=== PATIENT | male | born 1940 | race Caucasian/White ===

== ENCOUNTER 2019-06-29 04:11 | Observation (INO) | payer MEDICARE, OTHER ==
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
--- NOTE | 2019-06-29 05:40 | CRLCR ---
Indication: dyspnea Technique: Chest 1 view Comparison: None Findings/Impression: Cardiovascular and mediastinum: Heart size and vasculature are normal in caliber and appearance. Mediastinum is within normal limits. Lungs and pleural space: Increase interstitial markings throughout the lungs may be chronic. No sign of focal infiltrate or mass. No sign of pleural effusion. No pneumothorax. Bones and soft tissues: No significant findings. Dictated by Maureen Galeana MD @ Jun 29 2019 5:37AM Signed by Dr. Maureen Galeana @ Jun 29 2019 5:38AM
--- NOTE | 2019-06-29 08:41 | PCM.HP.2 ---
H&P History of Present Illness - General Date of Service: 06/29/19 Admit Problem/Dx: Admission Diagnosis/Problem Admission Diagnosis/Problem Atrial fibrillation Source of Information: Patient, Provider History Limitations: Reports: No Limitations - History of Present Illness Initial Comments - Free Text/Narative: CC: I get winded HPI: Naeem presents to the emergency room today with fatigue and shortness of breath, especially dyspnea with exertion. He reports onset of initial symptoms about 2 weeks ago. He had some nausea and significant generalized abdominal cramping after eating cookies at a friend's house. Initially seemed to get over this and was feeling better but has gone steadily downhill since that time. He is now short of breath with any activity. He normally walks extensive distances each day without any limitation. He has been short of breath even at rest at times. He thinks maybe he's had some subjective fevers but has not measured any temperatures. He is not coughing. He has not had any episodes of chest pain. He has not had nausea since the original symptoms 2 weeks ago. Appetite has been relatively stable. No change in bowel or bladder habits. No sick contacts. He doesn't think anybody else cut sick after eating cookies a few weeks ago. Workup in the emergency room revealed evidence for atrial fibrillation with a mildly tachycardic response. Chest x-ray showed either some old chronic changes or possibly mild congestive failure. He will be admitted for observation and expedited workup. - Related Data Allergies/Adverse Reactions: Allergies Allergy/AdvReac Type Severity Reaction Status Date / Time No Known Allergies Allergy Verified 06/29/19 04:35 Home Medications: Home Meds NK [No Known Home Meds] 06/29/19 [History] Past Medical History HEENT History: Reports: Cataract, Hard of Hearing Oncologic (Cancer) History: Reports: Basal Cell Carcinoma, Squamous Cell Carcinoma Dermatologic History: Reports: Other (See Below) Other Dermatologic History: actinic keratoses, basal cell carcinoma of skin, squamous cell carcinoma of face - Past Surgical History GI Surgical History: Reports: Hernia, Abdominal Social & Family History - Family History Cardiac: Denies: Afib, CAD - Tobacco Use Smoking Status *Q: Current Every Day Smoker Years of Tobacco use: 55 Packs/Tins Daily: 0.5 - Caffeine Use Caffeine Use: Reports: Coffee - Alcohol Use Days Per Week of Alcohol Use: 7 Number of Drinks Per Day: 1 Total Drinks Per Week: 7 - Recreational Drug Use Recreational Drug Use: No H&P Review of Systems - Review of Systems: Review Of Systems: See Below Free Text/Narrative: A complete 12 point review of systems was obtained. Pertinent positives and negatives are noted in the history of present illness. All other systems were reviewed and were negative except as noted. Exam - Exam Exam: See Below - Vital Signs Vital Signs: Last Vital Signs Temp 36.5 C 06/29/19 04:34 Pulse 111 H 06/29/19 04:34 Resp 16 06/29/19 04:34 BP 140/93 H 06/29/19 04:34 Pulse Ox 97 06/29/19 04:34 Weight: 78.5 kg - Exam Quality Assessment: No: Supplemental Oxygen General: Alert, Oriented, Cooperative, Mild Distress HEENT: Conjunctiva Clear. No: Mucosa Moist & [place] (dry), Scleral Icterus Neck: Supple, Trachea Midline. No: Lymphadenopathy, JVD Lungs: Normal Respiratory Effort, Crackles (rare at bases) Cardiovascular: Regular Rate, Irregular Rhythm. No: Systolic Murmur GI/Abdominal Exam: Normal Bowel Sounds, Soft, Non-Tender, No Distention Back Exam: Normal Inspection, Full Range of Motion Extremities: No Pedal Edema. No: Increased Warmth Skin: Warm, Dry Neuro Extensive - Mental Status: Alert, Oriented x3, Nl Response to Commands Neuro Extensive - Motor, Sensory, Reflexes: No: Dysarthria, Abnormal Motor, Tremor Psychiatric: Alert, Normal Affect - Patient Data Lab Results Last 24 hrs: Laboratory Results - last 24 hr 06/29/19 06/29/19 06/29/19 Range/Units 05:10 05:10 05:50 WBC 5.1 (4.5-11.0) K/uL RBC 4.05 L (4.30-5.90) M/uL Hgb 12.6 (12.0-15.0) g/dL Hct 37.3 L (40.0-54.0) % MCV 92 (80-98) fL MCH 31 (27-31) pg MCHC 34 (32-36) % Plt Count 152 (150-400) K/uL Neut % (Auto) 77 H (36-66) % Lymph % (Auto) 15 L (24-44) % [place] % (Auto) 8 H (2-6) % Eos % (Auto) 0 L (2-4) % Baso % (Auto) 1 (0-1) % Sodium 123 L (140-148) mmol/L Potassium 3.7 (3.6-5.2) mmol/L Chloride 90 L (100-108) mmol/L Carbon Dioxide 21 (21-32) mmol/L Anion Gap 15.7 H (5.0-14.0) mmol/L BUN 10 (7-18) mg/dL Creatinine 0.7 L (0.8-1.3) mg/dL Est Cr Clr Drug Dosing 92.38 mL/min Estimated GFR (MDRD) > 60 (>60) Glucose 113 H (74-106) mg/dL Calcium 7.5 L (8.5-10.1) mg/dL Total Bilirubin 1.2 H (0.2-1.0) mg/dL AST 35 (15-37) U/L ALT 34 (12-78) U/L Alkaline Phosphatase 51 (46-116) U/L Troponin I 0.036 (0.000-0.056) ng/mL Total Protein 5.7 L (6.4-8.2) g/dL Albumin 2.5 L (3.4-5.0) g/dL Globulin 3.2 (2.3-3.5) g/dL Albumin/Globulin Ratio 0.8 L (1.2-2.2) Urine Color Yellow (YELLOW) Urine Appearance Clear (CLEAR) Urine pH 7.0 (5.0-8.0) Ur Specific [place] 1.020 (1.008-1.030) Urine Protein 100 H (NEGATIVE) mg/dL Urine Glucose (UA) Negative (NEGATIVE) mg/dL Urine Ketones Trace H (NEGATIVE) mg/dL Urine Occult Blood Trace-intact H (NEGATIVE) Urine Nitrite Negative (NEGATIVE) Urine Bilirubin Negative (NEGATIVE) Urine Urobilinogen 4.0 H (0.2-1.0) EU/dL Ur Leukocyte Esterase Negative (NEGATIVE) Urine RBC 0-5 (0-5) Urine WBC 0-5 (0-5) Ur Epithelial Cells Rare Amorphous Sediment Not seen Urine Bacteria Few Urine Mucus Not seen Result Diagrams: 06/29/19 05:10 06/29/19 05:10 Imaging Impressions Last 24 hrs: CXR - images personally reviewed - lungs clear with no mass or infiltrate. Probable small effusions EKG INTERPRETATION EKG Date: 06/29/19 Rhythm: A-Fib Rate (Beats/Min): 97 [place]: Normal QRS: Normal ST-T: Normal QT: Normal Comparison: NA - No Prior EKG EKG Interpretation Comments: early R-S transition Image personally reviewed *Q Meaningful Use (ADM) - VTE Risk Assess *Q Each Risk Factor Represents 1 Point: None Total Score 1 Point Risk Factors: 0 Each Risk Factor Represents 2 Points: None Total Score 2 Point Risk Factors: 0 Each Risk Factor Represents 3 Points: Age 75 Years or Greater Total Score 3 Point Risk Factors: 3 Each Risk Factor Represents 5 Points: None Total Score 5 Point Risk Factors: 0 Venous Thromboembolism Risk Factor Score *Q: 3 - Problem List (1) Atrial fibrillation with rapid ventricular response SNOMED Code(s): 500649256835442 ICD Code: I48.91 - UNSPECIFIED ATRIAL FIBRILLATION Status: Acute Current Visit: Yes Problem List Initiated/Reviewed/Updated: Yes Orders Last 24hrs: Active Orders 24 hr Category Date Time Status Patient Status Manage Transfer [TRANSFER] Routine ADT 06/29/19 08:29 Ordered EKG Documentation Completion [RC] ASDIRECTED Care 06/29/19 05:02 Active C-REACTIVE PROTEIN [CHEM] Stat Lab 06/29/19 08:28 Ordered SEDIMENTATION RATE MANUAL [HEME] Stat Lab 06/29/19 08:28 Ordered TSH ULTRASENSITIVE [CHEM] Stat Lab 06/29/19 08:28 Ordered Resuscitation Status Routine Resus Stat 06/29/19 08:30 Ordered EKG 12 Lead [EK] Routine Ther 06/29/19 05:02 Ordered Assessment/Plan Comment:: ASSESSMENT AND PLAN - New-onset atrial fibrillation - most likely this is the cause for his dyspnea and fatigue. Troponin is normal. No strong evidence to support infection at this time. Bedside ultrasound did show a pericardial effusion. Inflammatory markers are elevated. EKG did not show acute ischemic changes. Patient appears to be hypovolemic rather than hypervolemic at this time. Heart rate has improved without intervention. TSH mildly elevated but T4 is normal. No history of heart disease and he is otherwise stable and in excellent physical shape. -CT scan of the chest to further evaluate the pericardial effusion -Consider beta bo -Cardiac monitoring Maintenance issues - - DVT prophylaxis - patient will be ambulatory - GI prophylaxis - not indicated - Nutrition - regular - Hook catheter - not indicated CODE STATUS - full code Admission justification - patient will be referred observation status for expedited workup Disposition - I would anticipate discharge home after the hospital stay Primary care physician - no primary care Israel Mota M.D. - Mortality Measure Prognosis:: Good
[2019-06-29] MEDS ORDERED: Acetaminophen 325 MG Tab PO PRN (09:21)
[2019-06-29] MEDS ORDERED: Magnesium Hydroxide 400 MG/5 ML Susp 30 ML Cup PO PRN (09:21)
[2019-06-29] MEDS ORDERED: Ondansetron 4 MG/2 ML SDV IV PRN (09:21)
[2019-06-29] MEDS ORDERED: Ondansetron 4 MG Tab.DIS PO PRN (09:21)
[2019-06-29] MEDS ORDERED: Sodium Chloride 0.9% 10 ML Syringe FLUSH ONE (12:21)
[2019-06-29] MEDS ORDERED: Sodium Chloride 0.9% 100 ML IV SCH (12:30)
[2019-06-29] MEDS ORDERED: Iopamidol 612 MG/ML 100 ML Bottle IV SCH (12:30)
--- NOTE | 2019-06-29 15:45 | CRLCT ---
INDICATION: Cough; shortness of breath. COMPARISON: Chest radiograph June 29, 2019. TECHNIQUE: CT chest with intravenous contrast; coronal and sagittal reformats. FINDINGS: No CT evidence of pulmonary thromboembolism. No evidence of aortic aneurysm or dissection. Normal size cardiac silhouette without any evidence of pericardial effusion. Bilateral pleural effusion. No abnormal mediastinal or hilar lymphadenopathy. No abnormal intra pulmonary nodular densities are identified .limited CT through the upper abdomen is unremarkable. IMPRESSION: 1. Bilateral pleural effusion. 2. No CT evidence of pulmonary thromboembolism. 3. No evidence of aortic aneurysm or dissection. 4. Benign calcified lymph nodes mediastinum. Please note that all CT scans at this facility use dose modulation, iterative reconstruction, and/or weight-based dosing when appropriate to reduce radiation dose to as low as reasonably achievable. Dictated by Ge Sheikh MD @ Jun 29 2019 3:40PM Signed by Dr. Ge Sheikh @ Jun 29 2019 3:43PM
[2019-06-29] MEDS ORDERED: Furosemide 20 MG/2 ML VIAL IVPUSH ONE (16:45)
[2019-06-30] MEDS ORDERED: Diphtheria,Pertussis(Acell),Tetanus Vaccine 0.5 ML SDV IM ONE (09:00)
[2019-06-30] MEDS ORDERED: Pneumococcal Polyvalent-23 Vaccine 0.5 ML SDV IM ONE (10:00)
--- NOTE | 2019-06-30 15:58 | PCM.DCSUM1 ---
Discharge Summary - Hospital Course Brief History: Mr. Yates is an 78-year-old gentleman who was admitted through the emergency department with weakness and shortness of breath secondary to atrial fibrillation with rapid ventricular response and diastolic congestive heart failure. - Discharge Data Discharge Date: 06/30/19 Discharge Disposition: Home, Self-Care 01 Condition: Fair - Referral to Home Health Primary Care Physician: PCP None - Discharge Diagnosis/Problem(s) (1) Pericardial effusion SNOMED Code(s): 909506465 ICD Code: I31.3 - PERICARDIAL EFFUSION (NONINFLAMMATORY) Status: Acute Current Visit: Yes (2) Pleural effusion, bacterial SNOMED Code(s): 90854716 ICD Code: J90 - PLEURAL EFFUSION, NOT ELSEWHERE CLASSIFIED Status: Acute Current Visit: Yes (3) Diastolic CHF SNOMED Code(s): 083875975, 128513197 ICD Code: I50.30 - UNSPECIFIED DIASTOLIC (CONGESTIVE) HEART FAILURE Status : Acute Current Visit: Yes (4) Atrial fibrillation with rapid ventricular response SNOMED Code(s): 791532928385987 ICD Code: I48.91 - UNSPECIFIED ATRIAL FIBRILLATION Status: Acute Current Visit: Yes - Patient Summary/Data Hospital Course: Mr. Yates presented to the emergency room with fatigue and shortness of breath, especially dyspnea with exertion. He reported onset of initial symptoms about 2 weeks ago. He had some nausea and significant generalized abdominal cramping after eating cookies at a friend's house. Initially seemed to get over this and was feeling better but has gone steadily downhill since that time. He is now short of breath with any activity. He normally walks extensive distances each day without any limitation. He has been short of breath even at rest at times. He thinks maybe he's had some subjective fevers but has not measured any temperatures. He is not coughing. He has not had any episodes of chest pain. He has not had nausea since the original symptoms 2 weeks ago. Appetite has been relatively stable. No change in bowel or bladder habits. No sick contacts. He doesn't think anybody else cut sick after eating cookies a few weeks ago. Workup in the emergency room revealed evidence for atrial fibrillation with a mildly tachycardic response. Chest x-ray showed either some old chronic changes or possibly mild congestive failure. He was admitted for observation and expedited workup. He was given IV fluids in the emergency department and heart rate improved and stayed within desired range through the rest of his hospital stay. CT scan of the chest showed no evidence of pulmonary emboli but did document bilateral pleural effusions. There was no evidenceof reported pericardial effusion from CT scan. The following morning he did have an echocardiogram which showed low normal left ventricular function with estimated ejection fraction of 50-55%. There was some mild to moderate valvular disease and right-sided chamber enlargement. Also noted was concentric left ventricular hypertrophy. He felt somewhat better the following day and requested that he be discharged to home. I encouraged him to consider further hospitalization for evaluation, which he refused. Exercise Myoview study will be obtained as an outpatient to evaluate for underlying coronary artery disease. He was felt likely that he has at least some component of diastolic heart failure. We discussed options for anticoagulation risks and benefits of warfarin versus the newer agents. He will be started on Eliquis for anticoagulation following discharge. He will be placed on furosemide 20 mg by mouth daily. We reviewed the importance of following a strict 2 g sodium diet. Follow-up appointment will be scheduled with primary care for later this week, formal report from echocardiogram as well as results of exercise Myoview study should be reviewed with the patient at that time. He will be on a 2 g sodium diet and activity will be as tolerated. He will return to the emergency department if he notes increasing sy at home including shortness of breath or chest pain. - Patient Instructions Diet: Low Sodium Activity: As Tolerated Other/Special Instructions: Please schedule outpatient exercise Myoview study - Discharge Plan *PRESCRIPTION DRUG MONITORING PROGRAM REVIEWED*: Not Applicable *COPY OF PRESCRIPTION DRUG MONITORING REPORT IN PATIENT JANICE: Not Applicable Prescriptions/Med Rec: Apixaban [Eliquis] 2.5 mg PO BID #60 tablet Furosemide 20 mg PO DAILY #30 tablet Home Medications: Home Meds Apixaban [Eliquis] 2.5 mg PO BID #60 tablet 06/30/19 [Rx] Furosemide 20 mg PO DAILY #30 tablet 06/30/19 [Rx] Patient Handouts: Heart Failure, [id number], Preventing Heart Failure, Atrial Fibrillation, [id number] Referrals: Jessica Miramontes MD [Physician] - 07/10/19 1:30 pm (Please arrive 15 minutes early to register for your appointment.) - Discharge Summary/Plan Comment DC Time >30 min.: No - Patient Data Vitals - Most Recent: Last Vital Signs Temp 98.3 F 06/30/19 14:14 Pulse 76 06/30/19 14:14 Resp 18 06/30/19 14:14 BP 115/79 06/30/19 14:14 Pulse Ox 96 06/30/19 14:14 Weight - Most Recent: 173 lb 1.006 oz I&O - Last 24 hours: Intake & Output 06/30/19 06/30/19 06/30/19 06:59 14:59 22:59 Output Total 1375 Balance -1375 Lab Results - Last 24 hrs: Laboratory Results - last 24 hr 06/30/19 Range/Units 06:00 Sodium 134 L (140-148) mmol/L Potassium 3.7 (3.6-5.2) mmol/L Chloride 99 L (100-108) mmol/L Carbon Dioxide 26 (21-32) mmol/L Anion Gap 12.7 (5.0-14.0) mmol/L BUN 11 (7-18) mg/dL Creatinine 0.7 L (0.8-1.3) mg/dL Est Cr Clr Drug Dosing 92.38 mL/min Estimated GFR (MDRD) > 60 (>60) Glucose 104 (74-106) mg/dL Calcium 7.8 L (8.5-10.1) mg/dL Med Orders - Current: Current Medications Acetaminophen (Tylenol) 650 mg PO Q4H PRN PRN Reason: Pain (Mild 1-3)/fever Last Admin: 06/29/19 18:07 Dose: 650 mg Magnesium Hydroxide (Milk Of Magnesia) 30 ml PO Q12H PRN PRN Reason: Constipation Ondansetron HCl (Zofran Odt) 4 mg PO Q6H PRN PRN Reason: Nausea able to take PO Ondansetron HCl (Zofran) 4 mg IV Q6H PRN PRN Reason: Nausea/Vomiting Senna/Docusate Sodium (Senna Plus) 1 tab PO BID PRN PRN Reason: Constipation Discontinued Medications Diphtheria/Tetanus/Acell Pertussis (Adacel) 0.5 ml IM .ONCE ONE Stop: 06/30/19 09:01 Furosemide (Lasix) 20 mg IVPUSH ONETIME ONE Stop: 06/29/19 16:46 Last Admin: 06/29/19 16:59 Dose: 20 mg Sodium Chloride (Normal Saline) 100 mls @ 3 mls/sec IV ASDIRECTED [facility] Stop: 06/29/19 23:30 Last Admin: 06/29/19 14:48 Dose: 3 mls/sec Influenza Virus Vaccine (Pharmacy To Dose - Influenza Vaccine) 1 each IM ONETIME ONE Stop: 06/29/19 12:01 Last Admin: 06/29/19 12:01 Dose: Not Given Influenza Virus Vaccine (Fluzone High-Dose 2019-20 Syringe) 180 mcg IM .ONCE ONE Stop: 06/29/19 11:01 Last Admin: 06/29/19 10:49 Dose: 180 mcg Iopamidol (Isovue-300 (61%)) 100 ml IV . [facility]ED [facility] Stop: 06/29/19 23:30 Last Admin: 06/29/19 14:48 Dose: 100 ml Pneumococcal Polyvalent Vaccine (Pneumovax 23) 0.5 ml IM .ONCE ONE Stop: 06/30/19 10:01 Last Admin: 06/30/19 12:01 Dose: 0.5 ml Sodium Chloride (Saline Flush) 10 ml FLUSH ONETIME ONE Stop: 06/29/19 12:22 Last Admin: 06/29/19 14:48 Dose: 10 ml - Exam Quality Assessment: Reports: DVT Prophylaxis General: Reports: Alert, Oriented, Cooperative, Mild Distress Lungs: Reports: Clear to Auscultation, Normal Respiratory Effort Cardiovascular: Reports: Regular Rate, No Murmurs, Irregular Rhythm GI/Abdominal Exam: Soft, Non-Tender, No Organomegaly, No Distention Extremities: Non-Tender, No Pedal Edema
== END 2019-06-30 16:35 | disposition home or self-care (01) ==
LOC: JP.ED 04:11 → JP.MS 08:29
PROVIDERS: ADMIT Internal Medicine; ATTEND Internal Medicine
DX: I48.91 Unspecified atrial fibrillation (principal); I31.3 Pericardial effusion (noninflammatory); J90 Pleural effusion, not elsewhere classified; I50.30 Unspecified diastolic (congestive) heart failure; F17.210 Nicotine dependence, cigarettes, uncomplicated
CPT/HCPCS: 36415; 71046; 71260; 80048; 80053; 81001; 84439; 84443; 84484; 85025; 85651; 86140; 90662; 90732; 93005; 93010; 93306; 96374; 99217; 99219; 99284; 99285; A9270; G0008; G0009; G0378; J1940; J7030; Q9967; 90471